=== PATIENT | female | born 1965 | race Caucasian/White ===

== ENCOUNTER 2022-04-21 08:53 | Outpatient (CLI) | payer BC, SELFPAY ==
[2022-04-21 14:22] LABS: Cholesterol* 209 mg/dL (90-199)
[2022-04-21 14:23] LABS: Glucose* 79 mg/dL (60-115); HDL Cholesterol* 61 mg/dL (>=50); LDL Cholesterol Calculated 130 mg/dL (<100); Triglycerides* 90 mg/dL (40-149)
== END 2022-04-21 08:54 | disposition home or self-care (01) ==
PROVIDERS: PCP Emergency Medicine; Visit Provider Emergency Medicine
DX: Z13.1 Encounter for screening for diabetes mellitus (principal); Z13.6 Encounter for screening for cardiovascular disorders
CPT/HCPCS: 80061; 82947

== ENCOUNTER 2023-03-14 09:08 | Outpatient (CLI) | payer OTHER, SELFPAY | END 2023-03-14 09:09 | disposition home or self-care (01) | LOC: NFLDREF 03-15 20:00 | PROVIDERS: PCP Emergency Medicine; Referring Provider Emergency Medicine; Visit Provider Emergency Medicine | DX: Z00.00 Encounter for general adult medical examination without abnormal findings (principal); E03.9 Hypothyroidism, unspecified; Z13.1 Encounter for screening for diabetes mellitus; Z13.6 Encounter for screening for cardiovascular disorders | CPT/HCPCS: 80048; 80061; 84443 ==

== ENCOUNTER 2023-03-16 15:38 | Outpatient (CLI) | payer OTHER, SELFPAY | END 2023-03-16 15:39 | disposition home or self-care (01) | LOC: LKVREF 15:38 | PROVIDERS: PCP Emergency Medicine; Visit Provider Emergency Medicine | DX: Z00.00 Encounter for general adult medical examination without abnormal findings (principal); M79.669 Pain in unspecified lower leg | CPT/HCPCS: 82728 ==

== ENCOUNTER 2023-10-10 16:09 | Outpatient (CLI) | payer OTHER, SELFPAY | END 2023-10-10 16:10 | disposition home or self-care (01) | PROVIDERS: PCP Emergency Medicine; Visit Provider Physician Assistant Medical | DX: R10.13 Epigastric pain (principal); E03.9 Hypothyroidism, unspecified | CPT/HCPCS: 80053; 83690 ==

== ENCOUNTER 2023-10-14 07:30 | Outpatient (CLI) | payer OTHER, SELFPAY | END 2023-10-14 07:31 | disposition home or self-care (01) | LOC: NFLDREF 10-18 16:48 | PROVIDERS: PCP Emergency Medicine; Referring Provider Emergency Medicine; Visit Provider Emergency Medicine | DX: R10.13 Epigastric pain (principal) | CPT/HCPCS: 87338 ==

== ENCOUNTER 2025-04-17 13:07 | Outpatient (CLI) | payer OTHER, SELFPAY | END 2025-04-17 13:08 | disposition home or self-care (01) | PROVIDERS: Visit Provider Nurse Practitioner Family | DX: E03.9 Hypothyroidism, unspecified (principal); Z13.9 Encounter for screening, unspecified; Z13.6 Encounter for screening for cardiovascular disorders | CPT/HCPCS: 80053; 80061; 84443 ==